=== PATIENT | male | born 1985 | race Caucasian/White ===

== ENCOUNTER 2018-01-21 18:42 | Inpatient (IN) | payer OTHER ==
[~2018-01-21] VITALS: Ht 182.9 cm; Wt 93.0 kg
[2018-01-23] MEDS ORDERED: DICLOFENAC POTA50 MG PO (12:31)
[2018-01-23] MEDS ORDERED: PERCOCET 5-3251 EACH PO (12:31)
== END 2018-01-24 10:21 | disposition home or self-care (01) | DRG 343 ==
LOC: ER 18:42 → SEC-K 01-22 08:43 → O/R 01-22 13:00 → SURG 01-22 16:06
PROVIDERS: Surgery
PROC: BW21ZZZ Computerized Tomography (CT Scan) of Abdomen and Pelvis (ICD-10-PCS; 2018-01-22)
PROC: 0DTJ4ZZ Resection of Appendix, Percutaneous Endoscopic Approach (ICD-10-PCS; principal; 2018-01-22 12:15)
DX: K35.89 Other acute appendicitis (principal)

== ENCOUNTER 2019-08-17 03:04 | Emergency (ER) | payer OTHER ==
[~2019-08-17] VITALS: Ht 182.9 cm; Wt 90.7 kg
[~2019-08-17 03:04] MED LIST: DICLOFENAC POTA50 MG PO; PERCOCET 5-3251 EACH PO
[2019-08-18] MEDS ORDERED: BACTRIM DS TAB1 EACH PO (14:20)
== END 2019-08-17 05:36 | disposition home or self-care (01) ==
LOC: ER 03:04
DX: J06.9 Acute upper respiratory infection, unspecified (principal); N39.0 Urinary tract infection, site not specified

== ENCOUNTER 2019-08-18 11:36 | Emergency (ER) | payer OTHER ==
[~2019-08-18] VITALS: Ht 182.9 cm; Wt 90.7 kg
[2019-08-18] MEDS ORDERED: BACTRIM DS TAB1 EACH PO (14:20)
== END 2019-08-18 14:32 | disposition home or self-care (01) ==
LOC: ER 11:36
DX: N39.0 Urinary tract infection, site not specified (principal)